=== PATIENT | female | born 1990 | race Caucasian/White ===

== ENCOUNTER 2016-10-26 09:53 | Emergency (ER) | payer OTHER, BC ==
[2016-10-26 09:55] VITALS: BMI 25.7
[2016-10-26 10:05] VITALS: RESP 18; TEMP 98.7; O2SAT 99
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
--- NOTE | 2016-10-26 12:22 | RAD ---
PROCEDURE: Right Wrist Radiographs. HISTORY: wrist injury COMPARISON: None. FINDINGS: BONES: Normal. No fracture. JOINTS: Normal. No dislocation. SOFT TISSUES: Normal. OTHER FINDINGS: None. IMPRESSION: Normal right wrist radiographs.
[2016-10-26 12:33] VITALS: BP 148/75; PULSE 79
== END 2016-10-26 12:38 | disposition home or self-care (01) ==
LOC: ED 09:53
DX: T23.171A Burn of first degree of right wrist, initial encounter (principal); W22.11XA Striking against or struck by driver side automobile airbag, initial encounter; V49.9XXA Car occupant (driver) (passenger) injured in unspecified traffic accident, initial encounter; M54.2 Cervicalgia; Z48.02 Encounter for removal of sutures
CPT/HCPCS: 73110; 96372; 99285; J1885